=== PATIENT | female | born 1955 | race Caucasian/White ===

== ENCOUNTER 2021-09-24 13:32 | Emergency (ER) | payer OTHER ==
[2021-09-24 14:45] LABS: HEMOGLOBIN 12.4 gm/dl (12.3-15.3); RED BLOOD COUNT 4.97 M/UL (4.00-5.10); WHITE BLOOD COUNT 7.2 K/UL (4.5-11.0)
[2021-09-24 15:36] LABS: BUN/CREATININE RATIO 23 (0-10)
== END 2021-09-24 16:08 | disposition home or self-care (01) ==
LOC: ER1 13:32
PROVIDERS: Preventive Medicine Occupational Medicine
DX: R60.0 Localized edema (principal); I10 Essential (primary) hypertension
CPT/HCPCS: 80053; 82550; 82553; 83605; 83880; 84484; 85025; 85652; 86140; 93926; 93971; 99284

== ENCOUNTER 2021-10-02 13:17 | Emergency (ER) | payer OTHER ==
[2021-10-02] MEDS ORDERED: CYCLOBENZAPRINE5 MG PO (17:09)
[2021-10-02] MEDS ORDERED: MELOXICAM15 MG PO (17:09)
== END 2021-10-02 16:17 | disposition left against medical advice (07) ==
LOC: ER1 13:17
DX: S39.012A Strain of muscle, fascia and tendon of lower back, initial encounter (principal); S20.211A Contusion of right front wall of thorax, initial encounter; S70.01XA Contusion of right hip, initial encounter; I10 Essential (primary) hypertension; M51.36 Other intervertebral disc degeneration, lumbar region; V49.40XA Driver injured in collision with unspecified motor vehicles in traffic accident, initial encounter; Y92.410 Unspecified street and highway as the place of occurrence of the external cause
CPT/HCPCS: 71111; 72131; 73502; 99283